=== PATIENT | male | born 1985 | race Caucasian/White ===

== ENCOUNTER 2019-09-22 08:27 | Outpatient (CLI) | payer OTHER, SELFPAY ==
--- NOTE | ~2019-09-22 | CT_ITS ---
EXAMINATION: CT soft tissue neck w con EXAM DATE: 09/22/2019 09:38 INDICATION: Hypopharyngeal malignancy. TECHNIQUE: Spiral CT of the neck was performed following intravenous injection of 75 mL Omnipaque 350 . Axial, coronal and sagittal images were reviewed. The dose-length product (DLP) for this examinat ion was 488.21 mGy-cm. The exposure was tailored according to patient size (auto mA exposure control ), and iterative reconstruction (ASIR) was used as additional dose reduction technique. There is no prior study for comparison. FINDINGS: Lobular thickening to the left side of the vallecula, piriform sinus, some thickening of th e left aspect of the epiglottis, region measuring about 1.8 x 1.0 cm. The inferior margin appears to be just above the glottis. There is some effacement of the left preglottic fat, but it does not appea r invaded. The parapharyngeal fat is clear. The thyroid gland is unremarkable. The submandibular an d parotid glands are symmetric. The superior mediastinum is unremarkable. The opacified vas culature is patent. The orbits are unremarkable. Visualized sinuses and mastoid air cells are wel l aerated. Lung apices are clear. There is cervical spondylosis. IMPRESSION: Hypopharyngeal mass centered at the left vallecula, piriform sinus. Thickened left half of the epiglottis. No cervical lymphadenopathy. Reviewed, dictated and finalized at location A. 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 Thickened left half of the epiglottis. No cervical lymphadenopathy.
[2019-09-22 09:23] LABS: Estimated Glomerular Filt Rate > 60
== END 2019-09-22 08:28 | disposition home or self-care (01) ==
PROVIDERS: PCP Otolaryngology; Visit Provider Otolaryngology
DX: C13.9 Malignant neoplasm of hypopharynx, unspecified (principal)
CPT/HCPCS: 36415; 70491; Q9967

== ENCOUNTER 2020-04-17 09:06 | Outpatient (CLI) | payer OTHER, SELFPAY ==
--- NOTE | ~2020-04-17 | XR_ITS ---
EXAMINATION: XR shoulder LT min 2V EXAM DATE: 04/17/2020 09:32 INDICATION: Left shoulder pain X 4 days. TECHNIQUE: The following left shoulder projections obtained: frontal projection with internal rotatio n, frontal projection with external rotation, Grashey, and scapular Y view (4+ views). There is no p rior study for comparison. FINDINGS: No evidence of left shoulder rotator cuff calcific tendinosis. There is mild acromiocla vicular osteoarthritis. There are some small erosion suspected at the clavicle at the acromioclavicul ar joint. Nonspecific but some possible considerations include subchondral cysts, posttraumatic osteo lysis, rheumatoid arthritis or hyperparathyroidism. There are no acute fractures or dislocations iden tified. There is no subcutaneous gas. The soft tissue is unremarkable. There are no radiopaque fo reign bodies. IMPRESSION: 1. Mild left acromioclavicular osteoarthritis. 2. Small distal clavicular erosions, could be subchondral cysts osteoarthritis but some other less l ikely possibilities above. Follow-up can be obtained if symptoms persist. Reviewed, dictated and finalized at location A. [employer] IMPRESSION: 1. Mild left acromioclavicular osteoarthritis. 2. Small distal clavicular erosions, could be subchondral cysts osteoarthritis but some other less likely possibilities above. Follow-up can be obtained if s ymptoms persist.
== END 2020-04-17 09:07 | disposition home or self-care (01) ==
LOC: CHSIMG 09:09
DX: M25.512 Pain in left shoulder (principal)
CPT/HCPCS: 73030

== ENCOUNTER 2022-08-21 14:03 | Outpatient (CLI) | payer OTHER, SELFPAY ==
[2022-08-21 14:16] LABS: Basophils Percent Auto 1.2 % (0.0-1.0); Eosinophils Absolute Auto 0.67 K/mm3 (0.02-0.50); Eosinophils Percent Auto 7.9 % (1.0-6.0); Hematocrit 44.7 % (40.0-54.0); Hemoglobin 15.1 g/dL (14.0-18.0); Immature Granulocyte Absolute 0.02 K/mm3 (0.00-0.00); Immature Granulocyte Percent A 0.2 % (0.0-0.0); Lymphocytes Absolute Auto 1.94 K/mm3 (1.10-4.50); Mean Corpuscular HGB Conc 33.8 g/dL (32.0-36.0); Mean Corpuscular Hemoglobin 32.1 pg (27.0-31.0); Mean Corpuscular Volume 94.9 fL (78.0-102.0); Mean Platelet Volume 8.6 fl (8.7-11.0); Monocytes Absolute Auto 0.51 K/mm3 (0.10-0.90); Neutrophils Absolute Auto 5.2 K/mm3 (1.7-7.2); Neutrophils Percent Auto 61.7 % (50.0-70.0); Platelet Count Result 355 K/mm3 (150-420); Red Blood Count 4.71 M/mm3 (4.70-6.10); Red Cell Distribution Width 11.4 % (11.6-14.4); White Blood Count 8.5 K/mm3 (4.8-10.8)
[2022-08-21 14:59] LABS: Thyroid Stimulating Hormone Reflex 2.17 u/IU/mL (0.36-3.74)
[2022-08-21 15:13] LABS: Alanine Aminotransferase 51 U/L (16-63); Albumin Level 4.8 g/dL (3.4-5.0); Alkaline Phosphatase 54 U/L (46-116); Anion Gap 9 mmol/L (8-16); Aspartate Amino Transferase 36 U/L (15-37); Bilirubin,Total 0.3 mg/dL (0.00-1.00); Blood Urea Nitrogen 17 mg/dL (7-18); Calcium 9.3 mg/dL (8.5-10.1); Carbon Dioxide 29 mmol/L (21-32); Chloride 104 mmol/L (98-108); Estimated Glomerular Filt Rate > 60; Glucose 97 mg/dL (70-99); Osmolality Calculated 295 mOsm/kg (285-295); Potassium 4.3 mmol/L (3.5-5.1); Sodium 142 mmol/L (136-145); Total Protein 7.9 g/dL (6.4-8.2)
== END 2022-08-21 14:04 | disposition home or self-care (01) ==
LOC: CHSLAB 14:06
PROVIDERS: PCP Family Medicine; Visit Provider Internal Medicine Hematology & Oncology
DX: C32.1 Malignant neoplasm of supraglottis (principal); Z13.29 Encounter for screening for other suspected endocrine disorder
CPT/HCPCS: 36415; 80053; 84443; 85025